=== PATIENT | female | born 1925 | race Caucasian/White ===

== ENCOUNTER 2016-12-27 11:57 | Inpatient (IN) | payer MEDICARE, BC ==
[~2016-12-27] VITALS: Ht 152 cm; Wt 56.0 kg
[2016-12-27] VITALS (9 sets, daily range): BP systolic 109–155; BP diastolic 65–85
--- NOTE | ~2016-12-27 | EKG ---
[place], [place] ELECTROCARDIOGRAM REPORT NAME: DARYA BEARDEN UNIT #: [id number] ROOM: [facility] DOCTOR: ARINA HANSON MD BIRTHDATE: [birth year] DOS: 12/27/2016 TIME: 1305 hours. FINDINGS: 1. Normal sinus rhythm. 2. Leftward axis. 3. First-degree AV block. 4. Left ventricular hypertrophy with secondary ST-T changes. 5. Abnormal electrocardiogram. ARINA HANSON MD CM:EKGRPT:ELECTROCARDIOGRAM REPORT 34 31 ARINA HANSON MD
[~2016-12-27 11:57] MED LIST: ASPIRIN ADULT L81 M1 PO; CALCIUM + D 5001 TAB PO; CARDIZEM LA120 MG PO; CHOLESTYRAMINE1 PO1; COUMADIN2.5 MG PO; COUMADIN5 M2 PO; CYMBALTA30 MG PO; DILTIAZEM HYDR120 M2 PO; FOSINOPRIL SODI20 MG PO; GABAPENTIN100 M1 PO; HYDROCODONE BIT1 T11 PO; LEVOTHYROXIN0.025 M1 PO; LIPITOR10 MG PO; LISINOPRIL AND1 TA2; MULTIPLE VITAMI1 CAP PO; PREVACID30 M1 PO; PREVACID30 M2 PO; REVLIMID10 MG PO; REVLIMID5 MG PO; SENNA-PLUS 50 M1 TA1 PO; SOTALOL80 MG PO; ZIAC PO; ZITHROMAX250 MG; ZYRTEC10 M3 PO
[2016-12-27] MEDS ORDERED: ZANTAC 150150 MG PO (12:12)
[2016-12-27 12:57] LABS: BASO % 0.3 % (0.0-1.0); EOS # 0.1 10*3/uL (0.0-0.4); EOS % 0.9 % (1.0-4.0); HEMATOCRIT 38.4 % (37.0-47.0); HEMOGLOBIN 13.1 g/dl (12.0-16.0); LYMPH # 1.3 10*3/uL (1.3-4.4); LYMPH % 21.9 % (27.0-41.0); MEAN CELL VOLUME 94.1 fl (81.0-99.0); MEAN CORPUSCULAR HGB 32.1 pg (27.0-31.0); MEAN CORPUSCULAR HGB CONC 34.1 g/dl (33.0-37.0); MEAN PLATELET VOLUME 10.3 fl (9.6-12.3); MONO # 0.7 10*3/uL (0.1-1.0); MONO % 11.7 % (3.0-9.0); NEUT # 3.8 10*3/uL (2.3-7.9); NEUT % 64.5 % (47.0-73.0); PLATELET COUNT AUTOMATED 139 10*3/uL (130-400); RED BLOOD COUNT 4.08 10*6/uL (4.10-5.10); RED CELL DISTRI WIDTH 15.2 % (0-14.5); WHITE BLOOD COUNT 5.9 10*3/uL (4.8-10.8)
[2016-12-27 13:21] LABS: ALBUMIN 3.2 gm/dl (3.1-4.5); ALKALINE PHOSPHATASE 56 U/L (45-117); BUN 15 mg/dl (7-24); CARBON DIOXIDE 22 mmol/L (21-32); CHLORIDE 110 mmol/L (98-107); EST GLOM FILT AFRICAN AMERICAN 56 ml/min; GLUCOSE 99 mg/dL (65-99); POTASSIUM 4.1 mmol/L (3.5-5.1); SGOT/AST 29 IU/L (3-35); SGPT/ALT 22 U/L (12-78); SODIUM 145 mmol/L (136-145); TOTAL PROTEIN 6.6 gm/dL (6.4-8.2)
[2016-12-27 13:29] LABS: TROPONIN I < 0.015 ng/ml (<0.045)
[2016-12-27 16:04] LABS: INTERNATIONAL NORM RATIO 1.9 (2.0-3.5); PROTHROMBIN TIME 20.4 SECONDS (9.0-12.4)
[2016-12-27 19:01] LABS: CKMB 0.9 ng/ml (0.5-3.6); CPK 62 U/L (26-192)
[2016-12-27 19:04] LABS: TROPONIN I < 0.015 ng/ml (<0.045)
[2016-12-28 00:04] VITALS: BP 115/75
[2016-12-28 00:30] LABS: CPK 62 U/L (26-192)
[2016-12-28 00:33] LABS: CKMB < 0.5 ng/ml (0.5-3.6); TROPONIN I < 0.015 ng/ml (<0.045)
[2016-12-28 06:06] LABS: BASO % 0.5 % (0.0-1.0); EOS # 0.1 10*3/uL (0.0-0.4); EOS % 2.6 % (1.0-4.0); HEMATOCRIT 33.4 % (37.0-47.0); HEMOGLOBIN 11.4 g/dl (12.0-16.0); LYMPH # 1.8 10*3/uL (1.3-4.4); LYMPH % 42.5 % (27.0-41.0); MEAN CELL VOLUME 94.6 fl (81.0-99.0); MEAN CORPUSCULAR HGB 32.3 pg (27.0-31.0); MEAN CORPUSCULAR HGB CONC 34.1 g/dl (33.0-37.0); MEAN PLATELET VOLUME 10.6 fl (9.6-12.3); MONO # 0.6 10*3/uL (0.1-1.0); MONO % 13.8 % (3.0-9.0); NEUT # 1.7 10*3/uL (2.3-7.9); NEUT % 40.1 % (47.0-73.0); PLATELET COUNT AUTOMATED 122 10*3/uL (130-400); RED BLOOD COUNT 3.53 10*6/uL (4.10-5.10); RED CELL DISTRI WIDTH 15.6 % (0-14.5); WHITE BLOOD COUNT 4.2 10*3/uL (4.8-10.8)
[2016-12-28 06:13] LABS: CKMB 0.8 ng/ml (0.5-3.6); CPK 51 U/L (26-192)
[2016-12-28 06:15] LABS: TROPONIN I < 0.015 ng/ml (<0.045)
[2016-12-28 06:29] LABS: ALBUMIN 2.9 gm/dl (3.1-4.5); ALKALINE PHOSPHATASE 47 U/L (45-117); BILIRUBIN, TOTAL 0.8 mg/dl (0.2-1.0); BUN 15 mg/dl (7-24); CARBON DIOXIDE 27 mmol/L (21-32); CHLORIDE 111 mmol/L (98-107); CHOLESTEROL 167 mg/dL (<200); EST GLOM FILT AFRICAN AMERICAN > 60 ml/min; FREE T4 0.95 ng/dl (0.76-1.46); GLUCOSE 88 mg/dL (65-99); HDL CHOLESTEROL 70 mg/dl (40-60); LDL CHOLESTEROL 73 mg/dL (9-159); MAGNESIUM 1.8 mg/dL (1.5-2.1); PHOSPHOROUS 3.3 mg/dL (2.5-4.9); POTASSIUM 3.4 mmol/L (3.5-5.1); SGOT/AST 18 IU/L (3-35); SGPT/ALT 18 U/L (12-78); SODIUM 144 mmol/L (136-145); TOTAL PROTEIN 5.9 gm/dL (6.4-8.2); TRIGLYCERIDES 121 mg/dl (<150); VLDL CHOLESTEROL 24 mg/dL (6-40)
[2016-12-28 06:31] LABS: INTERNATIONAL NORM RATIO 1.8 (2.0-3.5); PROTHROMBIN TIME 19.8 SECONDS (9.0-12.4)
[2016-12-28 07:04] LABS: HEMOGLOBIN A1c 5.6 % (4.8-5.6)
[2016-12-28 07:34] LABS: VITAMIN D, 25-HYDROXY 36.5 ng/mL (30-100)
[2016-12-28 07:40] LABS: FOLIC ACID > 24.00 ng/mL (>5.38)
[2016-12-28 08:00] VITALS: BP 148/60
[2016-12-28 12:00] VITALS: BP 156/69
== END 2016-12-28 13:10 | disposition home or self-care (01) | DRG 683 ==
LOC: ED 11:57 → EDHOLD 13:44 → 5E 14:08
PROVIDERS: Emergency Medicine; Internal Medicine
DX: N17.0 Acute kidney failure with tubular necrosis (principal); D68.59 Other primary thrombophilia; F33.9 Major depressive disorder, recurrent, unspecified; I10 Essential (primary) hypertension; I48.0 Paroxysmal atrial fibrillation; D46.9 Myelodysplastic syndrome, unspecified; R55 Syncope and collapse; K21.9 Gastro-esophageal reflux disease without esophagitis; G25.81 Restless legs syndrome; I95.1 Orthostatic hypotension; Z95.0 Presence of cardiac pacemaker; Z85.3 Personal history of malignant neoplasm of breast; E03.9 Hypothyroidism, unspecified; M06.9 Rheumatoid arthritis, unspecified; Z82.3 Family history of stroke; Z82.49 Family history of ischemic heart disease and other diseases of the circulatory system; Z88.0 Allergy status to penicillin; J30.2 Other seasonal allergic rhinitis